=== PATIENT | female | born 1955 | race Caucasian/White ===

== ENCOUNTER → 2016-11-21 | Outpatient (CLI) | payer OTHER | LOC: MMPC 09:00 | PROVIDERS: ATTEND Family Medicine | DX: M25.511 Pain in right shoulder (principal); M54.2 Cervicalgia; F32.0 Major depressive disorder, single episode, mild | CPT/HCPCS: 99213; G0463 ==

== ENCOUNTER → 2016-12-14 | Outpatient (CLI) | payer OTHER ==
[2016-12-14 09:56] LABS: LDL CHOLESTEROL,CALCULATED 51.8 mg/dL
== END ==
LOC: MOB LAB 08:21
PROVIDERS: ATTEND Family Medicine
DX: E78.2 Mixed hyperlipidemia (principal); I10 Essential (primary) hypertension
CPT/HCPCS: 36415; 80061

== ENCOUNTER → 2016-12-22 | Outpatient (CLI) | payer OTHER ==
--- NOTE | 2016-12-22 15:47 | DI ---
PA /LATERAL CHEST X-RAY, 12/22/2016 2:52 PM : Clinical History: Right scapular pain. Previous Exam: None at this facility. There is no acute soft tissue or bony abnormality. Heart size is normal. There is no acute infiltrate or effusion. There is a mass in the right upper lobe, within the anterior segment. The mass measures approximately 25 mm in diameter and has suggestion of a lobulated contour. It does not have any obvi ous calcifications within it. The right hilum is prominent and adenopathy cannot be excluded. The lef t hilum and mediastinum are normal. Readin. There is a 25 mm noncalcified lobulated soft tissue mass in the anterior segment of the right upp er lobe with probable right hilar adenopathy. A CT scan of the chest with IV contrast is recommended. 2. The exam is otherwise normal.
--- NOTE | 2016-12-22 16:13 | DI ---
CERVICAL SPINE SERIES, 12/22/2016 2:52 PM: Clinical History: Neck pain. Previous Exam: None at this facility. 3 routine upright views are submitted. The vertebral bodies are normal in height and size. There is s evere disc space narrowing at C5-6 through C7-T1 in these level show anterior and posterior bony prol iferative change. The remaining cervical disc spaces are of normal height. There is minimal anterior subluxation of C4 on C5 by approximately 1 mm. Arthritic changes are present in the zygapophyseal starla nts bilaterally from C3-4 through C7-T1. C1 articulates normally with C2 and the occiput. Prevertebra l soft tissue planes are normal. There is a lobulated mass in the right upper lobe. This is better se en on the accompanying chest x-ray. Readin. Severe chronic disc space narrowing from C5-6 through C7-T1. Arthritic changes are present in the zygapophyseal joints bilaterally between C3-4 through C7-T1. 2. There is anterior subluxation of C4 on C5 by 1 mm secondary to arthritic change. 3. Right upper lobe lung mass. See the accompanying chest x-ray report from the same date.
--- NOTE | 2016-12-22 16:13 | DI ---
RIGHT SHOULDER, 12/22/2016 2:52 PM: Clinical History: Acute right shoulder pain. Previous Exam: None at this facility. 3 views are submitted. There is no acute soft tissue, osseous, or joint abnormality. No blastic or ly tic bony changes are noted. There is a mass visible in the right upper lobe and it has a lobulated co ntour. This is better demonstrated on the chest x-ray that was obtained today. Readin. Normal right shoulder exam. 2. Right upper lobe lung mass. No blastic or lytic bony changes are noted. See the chest x-ray repor t for further information regarding this mass.
== END ==
LOC: RAD 15:05
PROVIDERS: ATTEND Family Medicine
DX: M62.9 Disorder of muscle, unspecified (principal); M54.2 Cervicalgia; M48.02 Spinal stenosis, cervical region; M89.8X1 Other specified disorders of bone, shoulder; M62.89 Other specified disorders of muscle; M25.511 Pain in right shoulder; R93.8 Abnormal findings on diagnostic imaging of other specified body structures; R91.8 Other nonspecific abnormal finding of lung field; F17.210 Nicotine dependence, cigarettes, uncomplicated
CPT/HCPCS: 71020; 72040; 73030; 99214; G0463; 36415; 80053; 85025; 85652

== ENCOUNTER → 2016-12-22 | Outpatient (CLI) | payer OTHER ==
[2016-12-22 17:21] LABS: BASOPHILS # (AUTO) 0.05 10*3/UL; BASOPHILS % (AUTO) 0.5 % (0-1); EOSINOPHILS # (AUTO) 0.52 10*3/UL; EOSINOPHILS % (AUTO) 4.8 % (0-8); HEMATOCRIT 40.6 % (37.0-47.0); HEMOGLOBIN 12.7 g/dL (12.0-16.0); MEAN CORPUSCULAR HEMOGLOBIN 26.8 PG (27-31); MEAN CORPUSCULAR HGB CONC 31.3 g/dL (33-37); MEAN PLATELET VOLUME 10.7 FL (7.4-12.2); MONOCYTES # (AUTO) 0.84 10*3/UL (0.3-0.8); MONOCYTES % (AUTO) 7.7 % (5-15); NEUTROPHILS # (AUTO) 6.56 10*3/UL; RED BLOOD COUNT 4.74 10^6/uL (4.20-5.40)
[2016-12-22 17:28] LABS: BUN/CREATININE RATIO 23.84 (6-20); CALCIUM 9.5 mg/dL (8.7-10.7); SERUM ALBUMIN 4.3 g/dL (3.5-4.8)
[2016-12-22 17:37] LABS: PLATELET MORPHOLOGY COMMENT NORMAL MORPHOLOGY (NORM); RBC MORPHOLOGY COMMENT NORMAL MORPHOLOGY (NORM); WBC MORPHOLOGY COMMENT NORMAL MORPHOLOGY (NORM)
== END ==
LOC: MOB LAB 16:26
PROVIDERS: ATTEND Family Medicine
DX: G62.9 Polyneuropathy, unspecified (principal); M89.8X1 Other specified disorders of bone, shoulder; R93.8 Abnormal findings on diagnostic imaging of other specified body structures; F17.210 Nicotine dependence, cigarettes, uncomplicated
CPT/HCPCS: 36415; 80053; 85025; 85652

== ENCOUNTER → 2016-12-28 | Outpatient (CLI) | payer OTHER ==
--- NOTE | 2016-12-28 16:14 | DI ---
CT CHEST W/CONTRAST,12/28/2016 9:51 AM: Clinical History: Abnormal chest x-ray. Previous Exam: Chest x-ray performed December 22, 2016. Findings: Multiple helically acquired CT images are obtained through the chest following the intravenous admini stration of 75 mL of Isovue 300. There is a mass within the right upper lobe measuring 3.2 cm in length with some adjacent atelectasis . There is also some lymphadenopathy within the right hilum and extending into the pretracheal region . A few peripheral vascular calcifications are seen. The lungs are otherwise clear. The upper abdomen is unremarkable. The adrenal glands are normal. Impression: 1. 3.2 cm right pulmonary mass with right hilar and mediastinal lymphadenopathy. This is worrisome fo r malignancy. Recommend biopsy for further evaluation.
== END ==
LOC: CT 09:42
PROVIDERS: ATTEND Family Medicine
DX: R93.8 Abnormal findings on diagnostic imaging of other specified body structures (principal); R91.8 Other nonspecific abnormal finding of lung field; F17.210 Nicotine dependence, cigarettes, uncomplicated
CPT/HCPCS: 71260

== ENCOUNTER → 2017-01-02 | Outpatient (CLI) | payer OTHER | LOC: MMPC 09:00 | PROVIDERS: ATTEND Family Medicine | DX: R91.8 Other nonspecific abnormal finding of lung field (principal); G62.9 Polyneuropathy, unspecified ==